=== PATIENT | male | born 1970 | race Caucasian/White ===

== ENCOUNTER 2023-06-21 10:18 | Emergency (ER) | payer OTHER ==
[~2023-06-21] VITALS: Ht 167.6 cm; Wt 78.5 kg
[2023-06-21 16:00] VITALS: BP 140/93; TEMP 98.4; O2SAT 99
== END 2023-06-21 16:06 | disposition left against medical advice (07) ==
LOC: ER 10:18 → EDBD 10:18 → ER 16:06
DX: S06.0X0A Concussion without loss of consciousness, initial encounter (principal); G81.91 Hemiplegia, unspecified affecting right dominant side; H54.61 Unqualified visual loss, right eye, normal vision left eye; W17.89XA Other fall from one level to another, initial encounter; Y93.89 Activity, other specified; Y92.89 Other specified places as the place of occurrence of the external cause; Y99.0 Civilian activity done for income or pay
CPT/HCPCS: 70450; 72125; 72131; A4606; A4663